=== PATIENT | female | born 1945 | race Caucasian/White ===

== ENCOUNTER → 2020-04-27 15:39 | Outpatient (CLI) | payer MEDICARE, OTHER, SELFPAY ==
[2018-04-29 10:08] VITALS: BMI 21.1
--- NOTE | 2020-04-27 15:44 | RAD_ITS ---
STUDY: X-RAY - LEFT KNEE REASON FOR EXAM: Female, 75 years old. PAIN X 1 YEAR, NO INJURY TECHNIQUE: 4 view(s) of the knee. COMPARISON: None. FINDINGS: Normal visualized distal femur. Normal visualized proximal tibia and fibula. Normal proximal tibiofibular articulation. There is no demonstrated fracture. Normal medial femorotibial compartment. Normal lateral femorotibial compartment. 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 There is no demonstrated joint effusion. The soft tissue structures are unremarkable. RAD/Knee 4 or More Views IMPRESSION: No definite acute or significant abnormality seen. Electronically Signed: Bienvenido Brown MD at 21:17 EST , Service support ,
--- NOTE | 2020-04-27 15:44 | RAD_ITS ---
STUDY: X-RAY - RIGHT KNEE REASON FOR EXAM: Female, 75 years old. PAIN X 1 YEAR, NO INJURY TECHNIQUE: 4 view(s) of the knee. COMPARISON: None. FINDINGS: Normal visualized distal femur. Normal visualized proximal tibia and fibula. Normal proximal tibiofibular articulation. There is no demonstrated fracture. Normal medial femorotibial compartment. Normal lateral femorotibial compartment. 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 There is no demonstrated joint effusion. The soft tissue structures are unremarkable. RAD/Knee 4 or More Views IMPRESSION: Mild degenerative changes. Small effusion. Electronically Signed: Bienvenido Brown MD at 21:18 EST , Service support ,
== END ==
PROVIDERS: PCP Internal Medicine; Referring Provider Internal Medicine; Visit Provider Internal Medicine
DX: M25.561 Pain in right knee (principal); M25.562 Pain in left knee
CPT/HCPCS: 73564

== ENCOUNTER → 2020-07-22 06:24 | Outpatient (CLI) | payer MEDICARE, OTHER, SELFPAY ==
[2018-04-29 10:08] VITALS: BMI 21.1
--- NOTE | 2020-07-22 08:44 | TELEMED_ITS ---
[facility] has confirmed receipt of a request for visit. This document confirms receipt of the order initiating the consult. To find the results of the consultation, please view the patient's reports for the scanned Telemed Consult.
== END ==
PROVIDERS: PCP Internal Medicine; Referring Provider Internal Medicine; Visit Provider Internal Medicine
DX: R40.4 Transient alteration of awareness (principal)
CPT/HCPCS: 95819

== ENCOUNTER 2020-08-31 12:30 | Outpatient (RCR) | payer MEDICARE, OTHER, SELFPAY ==
[2018-04-29 10:08] VITALS: BMI 21.1
--- NOTE | 2020-07-08 10:46 | HP.PTEVAL ---
Patient's Visit Information Kasey LARA is a 75 year old F referred to Physical Therapy by Dr. Marlyn Franco DO with a diagnosis of B knee pain. Date of Evaluation: 07/07/20 Physical Therapist: Jacky Butler DPT - Visit Plan Frequency: 1x/Week Duration: 4-6 Weeks Plan: Start with B quad, hamstring, glute max and med strengthening. Pt. desires to do a home exercise program and follow back up in a few weeks to change as nessesary. - Subjective Pt. is here today for her initial evaluation with diagnosis of B knee pain. Pt. reports having knee pain that started ~8 months ago. I feel like I just became weak in my legs and now my knees are hurting. No mech of injury noted. She reports pain at B patellar regions. No N/T. Pain that increases as the day progresses. Increases pain: walking, squating, stairs (especially decsnding), and standing for longer periods. Pt. did ahve xrays showing mild arthritic changes. Pt. has not been as active over the past year or so due to COVID restrictions. 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 She is hopeful to increase her strength and reduce her pain allowing for increased tolerance with all recreational and work activities. - Pain R knee Pain Intensity (Out of 10): 0 Pain Intensity Range: 0, 2 L knee Pain Intensity (Out of 10): 0 Pain Intensity Range: 0, 2 - Objective POSTURE: Pt. tends to stand with alternating hyper extension in her knees. Pt. is able to maintain proper posture with TCing. Normal NEVAEH and normal iliac crest hieghts. PALPATION: Pt. has mild tenderness at medial tibial femoral joints B and slight tendernessa t B patellar tendons. NEURO: Normal sensation and normal dTR of BLEs including achilles and patellar tendons. Pt. is able to rise on heels and toes without issues. ROM: R knee : 0-0-132deg, L knee 0-0-130deg. Pt. has no pain with over pressures. Pt. has slight tightness of B hamstrings, but otherwise normal. MMT: RLE: ankle 5/5 throughout; knee ext 4/5, flexion 4+/5; hip- flexion 4/5, adb 4/5, ext 4+/5. LLE: ankle 5/5 throughout; knee: ext 4+/5, flexion 4+/5; hip- flexion 4/5, abd 4/5, ext 4/5. Core strength: fair-. GAIT: pt. has normal gait pattern with slight hyper knee ext during end of swing phase. Normal tibial positioning. Slight B valgus positioning. STAIRS: Pt. is able to negotiate with 2 HR with light use of UEs with reciprocal pattern, increased pain B with descending. - Special Tests R Knee Durga - Meniscus: Negative R Knee Apley - Meniscus: Negative R Knee Anterior Drawer - ACL: Negative R Knee Posterior Drawer - PCL: Negative R Knee Valgus - MCL: Negative R Knee Varus - LCL: Negative L Knee Durga - Meniscus: Negative L Knee Apley - Meniscus: Negative L Knee Anterior Drawer - ACL: Negative L Knee Posterior Drawer - PCL: Negative L Knee Valgus - MCL: Negative L Knee Varus - LCL: Negative - Goals Goal 1:: LTG: pt. to be I with HEP. Goal Time Frame: 4-6 Weeks Goal 2:: STG: Pt. to ambulate household distances without increase in symptoms. Goal Time Frame: 2-4 Weeks Goal 3:: LTG: Pt. to ambulate unlimited distances without increase in symptoms. Goal Time Frame: 4-6 Weeks Goal 4:: LTG: Pt. to have increased BLE strength by 1 grade throughout effected musculature. Goal Time Frame: 4-6 Weeks Goal 5:: LTG: Pt. to negotiate steps with 1 HR wtihout increase in B knee pain. Goal Time Frame: 4-6 Weeks - Rehabilitation Potential Physical Therapy Diagnosis: Pt. has signs and symptoms consistent with B knee pain. Pt. has slight arthritic changes in B knees, but does not seem to be to cuase of her symptoms. She has good ROM without increase in symptoms. I did not see any soft tissue damage or meniscal pathology today. I would suggest increasing her strenth of B knee and hip musculature to reudce stress applied to B knees in standing and loaded positions. She does tend to stand with alternating TKE resting on her tibial femoral joint. I talked to her about avoiding this position to reduce stress applied to meniscus. Pt. consents. Pt. would benefit from PT to increase BLE strength allowing for increased tolerance to all functional mobility. Rehabilitation Potential: Excellent - Anticipated Interventions Patient/Client Instruction: Educate patient on: Condition, Plan of Care, Risk Factors, Benefits of Fitness Program For the Purpose of:: To facilitate caregiver knowledge, To improve self management, To prevent re-injury, To improve ability to perform tasks related to life management, To improve tolerance to ADL's Therapeutic Exercise to Include: Strength training, Power training, Postural training, Passive ROM, Active ROM For the Purpose of:: To decrease pain, To increase ROM, To improve nutrient delivery to tissue, To increase oxygenation perfusion, To improve muscle performance and motor function, To improve health of tissue Thank you for the opportunity to evaluate your patient. For Medicare and Medicare HMO plans, please review the plan of care and approve it. It will need to be FAXED BACK to us at [phone] for Medicare purposes. For Medicare only, by signing this I certify the plan of care. Please let me know if there are questions or concerns regarding this plan of care. Physician Signature: Date:
--- NOTE | 2020-09-06 09:57 | HP.PTREVAL_ITS ---
Dr. Marlyn Franco, DO, It has been my pleasure to treat Kasey LARA over the last 2 visits for B knee pain. Please see the progress note below for an update on the physical therapy plan of care! Subjective: Pt. reports overall improving, but is still having periods here she feels like her knees lock up. She has recently joined a gym and is working out there to increase BLE strength. No pain currently. Pt. is working out x3 days per week. 30% better overall. Objective/Function: Pt. continues to have pretty good ROM of BLEs. Pt. has g reatest issues with rising from sustained bend over positions. pt. reports this is occurring when she is bent over gardening, etc. She has been working on some machines a gym, but has been a little apprehensive with progressing due to fear of injury. MMT: 4/5 B quad, HS, glute max and glute med. Pt. has no pain with testing today. Pt. has good wallking, but her stair negotiation is a bit antalgic. She uses 1 HR with hand over hand pattern due to fear of her knee giving out on her. I showed her some new machines to add to her routine. I would still like her to work on B hip/LE strengthening. Pt. consents. Plan Plan: Pt. to add in above exercises to her gym routine. I also recommended using the trainers at her gym to assist with hip and LE strengthening pending exercise machines available. pt. consents. pt. to resume her independent program and follow up with PT in 4-6 weeks if needed. Goals Goal 1:: LTG: pt. to be I with HEP. Goal Time Frame: 4-6 Weeks Goal Progress: Progressing Goal 2:: STG: Pt. to ambulate household distances without increase in symptoms. Goal Time Frame: 2-4 Weeks Goal Progress: Progressing Goal 3:: LTG: Pt. to ambulate unlimited distances without increase in symptoms. Goal Time Frame: 4-6 Weeks Goal Progress: Progressing Goal 4:: LTG: Pt. to have increased BLE strength by 1 grade throughout effected musculature. Goal Time Frame: 4-6 Weeks Goal Progress: Progressing Goal 5:: LTG: Pt. to negotiate steps with 1 HR wtihout increase in B knee pain. Goal Time Frame: 4-6 Weeks Goal Progress: Progressing Anticipated Interventions Patient/Client Instruction: Educate patient on: Condition, Plan of Care, Risk Factors, Benefits of Fitness Program For the Purpose of:: To facilitate caregiver knowledge, To improve self management, To prevent re-injury, To improve ability to perform tasks related to life management, To improve tolerance to ADL's Therapeutic Exercise to Include: Strength training, Power training, Postural training, Passive ROM, Active ROM For the Purpose of:: To decrease pain, To increase ROM, To improve nutrient delivery to tissue, To increase oxygenation perfusion, To improve muscle performance and motor function, To improve health of tissue Please do not hesitate to contact me at [phone] by phone or if you have questions or concerns regarding this new plan of care! Sincerely, BEENA NguyenT
== END 2020-08-31 19:00 | disposition home or self-care (01) ==
LOC: PT 12:30
PROVIDERS: PCP Internal Medicine; Referring Provider Internal Medicine; Visit Provider Internal Medicine
DX: M25.561 Pain in right knee (principal); M25.562 Pain in left knee
CPT/HCPCS: 97110; 97161

== ENCOUNTER → 2020-10-06 11:18 | Outpatient (CLI) | payer MEDICARE, OTHER, SELFPAY ==
[2020-08-10 14:44] VITALS: BMI 21.1
--- NOTE | 2020-10-06 11:20 | US_ITS ---
STUDY: ULTRASOUND OF THE FEMALE PELVIS - COMPLETE REASON FOR EXAM: Female, 75 years old. POSTMENOPAUSAL BLEEDING LMP: The patient is postmenopausal. TECHNIQUE: Transabdominal and Transvaginal TECHNICAL QUALITY: Adequate. COMPARISON: None. FINDINGS: The uterus is retroflexed and is in a midline position. The uterus measures 6 cm x 4.7 cm x 2.4 cm. There is a Nabothian cyst of the cervix. The endometrium is slightly thickened and measures 2.8 mm in thickness, and is heterogeneous (striated). There is no demonstrated endometrial mass. 773 fibroids within the body of uterus. The larger measures 2 cm x 1.7 cm x 1.8 cm. I.U.D. - The patient does not have an I.U.D. The right ovary is non-visualized. The left ovary is non-visualized. There is no fluid in the cul-de-sac. The pre void volume of the bladder was 571.6 ml. US/Pelvic (Non ) IMPRESSION: Mildly thickened endometrium. There are 3 small uterine fibroids. Electronically Signed: Kirk Hernadez MD at 13:35 EDT , Service support ,
--- NOTE | 2020-10-06 11:20 | US_ITS ---
STUDY: ULTRASOUND OF THE FEMALE PELVIS - COMPLETE REASON FOR EXAM: Female, 75 years old. POSTMENOPAUSAL BLEEDING LMP: The patient is postmenopausal. TECHNIQUE: Transabdominal and Transvaginal TECHNICAL QUALITY: Adequate. COMPARISON: None. FINDINGS: The uterus is retroflexed and is in a midline position. The uterus measures 6 cm x 4.7 cm x 2.4 cm. There is a Nabothian cyst of the cervix. The endometrium is slightly thickened and measures 2.8 mm in thickness, and is heterogeneous (striated). There is no demonstrated endometrial mass. 773 fibroids within the body of uterus. The larger measures 2 cm x 1.7 cm x 1.8 cm. I.U.D. - The patient does not have an I.U.D. The right ovary is non-visualized. The left ovary is non-visualized. There is no fluid in the cul-de-sac. The pre void volume of the bladder was 571.6 ml. US/Transvaginal Non- IMPRESSION: Mildly thickened endometrium. There are 3 small uterine fibroids. Electronically Signed: Kirk Hernadez MD at 13:35 EDT , Service support ,
== END ==
PROVIDERS: PCP Internal Medicine; Referring Provider Internal Medicine; Visit Provider Internal Medicine
DX: N95.0 Postmenopausal bleeding (principal); D25.9 Leiomyoma of uterus, unspecified; N88.8 Other specified noninflammatory disorders of cervix uteri; R93.89 Abnormal findings on diagnostic imaging of other specified body structures; Z78.0 Asymptomatic menopausal state
CPT/HCPCS: 76830; 76856

== ENCOUNTER → 2021-01-23 20:04 | Outpatient (CLI) | payer MEDICARE, OTHER, SELFPAY ==
[2020-10-18 09:59] VITALS: BMI 23.0
== END ==
PROVIDERS: PCP Internal Medicine; Referring Provider Psychiatry & Neurology Neurology; Visit Provider Psychiatry & Neurology Neurology
DX: G47.419 Narcolepsy without cataplexy (principal); G47.00 Insomnia, unspecified; G47.33 Obstructive sleep apnea (adult) (pediatric)
CPT/HCPCS: 95810

== ENCOUNTER 2021-06-07 08:46 | Outpatient (CLI) | payer MEDICARE, OTHER, SELFPAY ==
[2021-06-07 10:24] LABS: Hematocrit 44.3 % (37-47); Hemoglobin 14.6 g/dL (12.0-15.0); Mean Corpuscular Volume 97.1 fL (81-99); Mean Platelet Vol. 10.8 fl (6.2-12.0); Platelet Count 240 K/mm3 (150-450); RBC Distribution Width CV 13.2 % (11.6-14.6); RBC Distribution Width SD 47.2 fl (35.1-43.9); Red Blood Count 4.56 M/mm3 (4.2-5.4); White Blood Count 4.9 K/mm3 (4.4-11.0)
[2021-06-07 11:11] LABS: Vitamin B12 434 pg/mL (211-911)
[2021-06-07 11:52] LABS: ALB/GLOB Ratio 1.1 RATIO (0.9-2.4); AST(SGOT) 15 U/L (15-37); Alanine Aminotransfer ALT/SGPT 22 U/L (13-56); Albumin, Serum 3.6 g/dL (3.2-5.0); Alkaline Phosphatase 90 U/L (45-117); Anion Gap 5 (5-15); BUN 16 mg/dL (7-18); BUN/Creat Ratio 19.1 RATIO (10-20); Calcium,Total 9.1 mg/dL (8.5-10.1); Chloride 106 mmol/L (98-107); Creatinine, Serum 0.84 mg/dL (0.55-1.02); EST Glomerular Filtration Rate 70 mL/min (>60); Est Glom Filt Rate - Afr Amer 85 mL/min (>60); Globulin 3.2 g/dL (2.2-4.2); Glucose 97 mg/dL (74-106); Potassium 4.1 mmol/L (3.5-5.1); Protein, Total 6.8 g/dL (6.4-8.2); Sodium Level 139 mmol/L (136-145); Thyroid Stim Hormone (TSH) 1.14 uIU/mL (0.358-3.74)
[2021-06-19 15:16] LABS: Vitamin B1, Thiamine 145.8 nmol/L (66.5-200.0)
== END 2021-06-07 23:59 | disposition home or self-care (01) ==
PROVIDERS: PCP Internal Medicine; Referring Provider Psychiatry & Neurology Neurology; Visit Provider Psychiatry & Neurology Neurology
DX: G47.33 Obstructive sleep apnea (adult) (pediatric) (principal); R41.82 Altered mental status, unspecified; F41.9 Anxiety disorder, unspecified
CPT/HCPCS: 36415; 80053; 82607; 82746; 84425; 84443; 85027

== ENCOUNTER → 2021-12-20 | Outpatient (CLI) | payer MEDICARE, OTHER, SELFPAY ==
--- NOTE | 2021-12-20 09:25 | BD_ITS ---
STUDY: DUAL ENERGY X-RAY ABSORPTIOMETRY / DXA REASON FOR EXAM: Female, 76 years old. M810. Patient is postmenopausal. TECHNIQUE: Bone Mineral Density (BMD) measurements of lumbar spine and left hip were obtained. COMPARISON: None. FINDINGS: Lumbar Spine (L1-L4): g/cm2 (0.776) / T-score (-2.5) / Z-score (0.1) Findings are suggestive of osteopenia with a high fracture risk. Left Femur Total: g/cm2 (0.651) / T-score (-2.4) / Z-score (-0.5) Left Femoral Neck: g/cm2 (0.533) / T-score (-2.8) / Z-score (-0.6) BD/Dexa Bone Density Study IMPRESSION: The patient is considered osteoporotic as outlined below according to World Chemo Organization (WHO) criteria with a high fracture risk. Reference Information: The T-score is the number of standard deviations above or below the standard which is normal for young adults at their peak bone mineral density. The World Health Organization (WHO) interprets the T-scores as follows: Above -1 Normal bone density Between -1 and -2.5 Osteopenia Equal to / or below -2.5 Osteoporosis As a practical clinical guideline, osteopenia may be graded as follows: Mild -1 through -1.5 Moderate -1.6 through -2.0 Severe -2.1 through -2.4 The Z-score is the number of standard deviations above or below age-matched controls. A Z-score of less than -1.5 would be considered abnormal. References: 1. NIH Osteoporosis and Related Bone Diseases www osteo.org 2. International Society for Clinical Densitometry www iscd.org 3. National Osteoporosis Foundation www nof.org Electronically Signed: Kirk Hernadez MD at 15:28 EDT ,
== END | disposition home or self-care (01) ==
LOC: OPBD 09:16
PROVIDERS: PCP Internal Medicine; Visit Provider Internal Medicine
DX: M81.0 Age-related osteoporosis without current pathological fracture (principal); Z78.0 Asymptomatic menopausal state
CPT/HCPCS: 77080

== ENCOUNTER 2023-12-17 12:14 | Outpatient (CLI) | payer MEDICARE, OTHER, SELFPAY ==
[2023-12-17 12:22] VITALS: BP 121/76; PULSE 67; RESP 16; TEMP 36.4; O2SAT 97; BMI 23.5
[2023-12-17] MEDS: DENOSUMAB 60 MG/ML SC (12:27)
== END 2023-12-17 23:59 | disposition home or self-care (01) ==
PROVIDERS: PCP Internal Medicine; Referring Provider Internal Medicine; Visit Provider Internal Medicine
DX: M81.0 Age-related osteoporosis without current pathological fracture (principal)
CPT/HCPCS: 96372; J0897

== ENCOUNTER → 2024-03-13 | Outpatient (CLI) | payer MEDICARE, OTHER, SELFPAY ==
--- NOTE | 2024-03-13 09:51 | BD_ITS ---
STUDY: DUAL ENERGY X-RAY ABSORPTIOMETRY / DXA REASON FOR EXAM: Female, 78 years old. 627.8Menopausal postmenopausalBONE DENSITY REASON FOR EXAM -- Postmenopausal status TECHNIQUE: Bone Mineral Density (BMD) measurements of lumbar spine and left hip were obtained. COMPARISON: 12/20/2021 FINDINGS: Lumbar Spine (L1-L4): g/cm2 (0.729) / T-score (-2.3) / Z-score (0.2) Findings are suggestive of osteopenia with a moderate fracture risk. Left Femur Total: g/cm2 (0.654) / T-score (-2.4) / Z-score (-0.3) Left Femoral Neck: g/cm2 (0.562) / T-score (-2.6) / Z-score (-0.3) BD/Dexa Bone Density Study IMPRESSION: The patient is considered osteoporotic as outlined below according to World Chemo Organization (WHO) criteria with a high fracture risk. There has been no change of bone density since the previous examination. Reference Information: The T-score is the number of standard deviations above or below the standard which is normal for young adults at their peak bone mineral density. The World Health Organization (WHO) interprets the T-scores as follows: Above -1 Normal bone density Between -1 and -2.5 Osteopenia Equal to / or below -2.5 Osteoporosis As a practical clinical guideline, osteopenia may be graded as follows: Mild -1 through -1.5 Moderate -1.6 through -2.0 Severe -2.1 through -2.4 The Z-score is the number of standard deviations above or below age-matched controls. A Z-score of less than -1.5 would be considered abnormal. References: 1. NIH Osteoporosis and Related Bone Diseases www osteo.org 2. International Society for Clinical Densitometry www iscd.org 3. National Osteoporosis Foundation www nof.org Electronically Signed: Abdulkadir Saleh MD at 8:41 EST ,
== END | disposition home or self-care (01) ==
PROVIDERS: PCP Internal Medicine; Referring Provider Internal Medicine; Visit Provider Internal Medicine
DX: Z78.0 Asymptomatic menopausal state (principal)
CPT/HCPCS: 77080

== ENCOUNTER 2024-06-19 12:18 | Outpatient (CLI) | payer MEDICARE, OTHER, SELFPAY ==
[2024-06-19 12:24] VITALS: BP 142/85; PULSE 67; RESP 16; TEMP 36.6; O2SAT 95
[2024-06-19] MEDS: DENOSUMAB 60 MG/ML SC (12:31)
== END 2024-06-19 23:59 | disposition home or self-care (01) ==
LOC: MEDOUTP 12:21
PROVIDERS: PCP Internal Medicine; Referring Provider Internal Medicine; Visit Provider Internal Medicine
DX: M81.0 Age-related osteoporosis without current pathological fracture (principal)
CPT/HCPCS: 96372; J0897

== ENCOUNTER → 2024-06-30 | Outpatient (CLI) | payer MEDICARE, OTHER, SELFPAY ==
--- NOTE | 2024-06-30 08:42 | US_ITS ---
PROCEDURE: PELVIC W/ TRANSVAGINAL 06/30/2024 REASON FOR EXAM: PELVIC US COMPLETE - POSTMENOPAUSAL BLEEDING TECHNIQUE: Transabdominal pelvic ultrasound COMPARISON: None. FINDINGS: The uterus is heterogeneous in the appearance and retroverted. The uterus measures up to 6.4 x 4.4 x 3.1 cm. The uterus contains fibroids. For example a 2.1 x 1.9 x 1.6 cm submucosal fibroid is identified. This is primarily located within the posterior wall at exerts mass effect on the endometrial canal. A submucosal fibroid is present measuring up to 1.8 x 1.5 x 1.1 cm also within the posterior uterine wall. Endometrial thickness measures up to 2 mm. There is fluid noted within the endometrial canal. The ovaries are not visualized. US/Pelvic w/ Transvaginal IMPRESSION: Heterogeneous fibroid uterus. Fluid within the endometrial canal. These findi ngs are unusual in a postmenopausal female. Recommend further gynecologic workup. Consider MRI pelvis with and without con trast. Reading Location: [id number]
== END | disposition home or self-care (01) ==
PROVIDERS: PCP Internal Medicine; Referring Provider Internal Medicine; Visit Provider Internal Medicine
DX: N95.0 Postmenopausal bleeding (principal)
CPT/HCPCS: 76830; 76856

== ENCOUNTER → 2024-10-19 | Outpatient (CLI) | payer MEDICARE, OTHER, SELFPAY ==
--- NOTE | 2024-10-19 10:05 | CT_ITS ---
PROCEDURE: CTA CHEST W/WO CONTRAST 10/19/2024 REASON FOR EXAM: CTA OF CHEST WITHOUT THEN WITH CONTAST AND POST-PROCESSING Ectatic thoracic aorta. TECHNIQUE: CTA CHEST W/WO CONTRAST Multiplanar Sagittal and Coronal images were obtained. 3D post processing was performed CONTRAST: Isovue 370 VOLUME: 100 mL One or more dose reduction techniques were used (e.g., Automated exposure control, adjustment of the mA and/or kV according to patient size, use of iterative reconstruction technique). RADIATION DOSE SUMMARY: CTDlvol: 6.3 mGy DLP: 185.26 mGycm COMPARISON: None FINDINGS: Hardware: None Lymph nodes: Small benign-appearing bilateral axillary lymph nodes. Heart: Mild cardiomegaly. No significant coronary artery calcification is seen. Minimal calcification of the aortic arch. The ascending thoracic aorta measures within normal limits. Thoracic Aorta: No thoracic aortic aneurysm or dissection. Pulmonary Vessels: No evidence of pulmonary embolism. Lungs and Airways: Minimal degree of increased markings at the lung bases suggestive of mild basilar scarring. Pleura: No pleural effusion Upper Abdomen: Unremarkable Bones: Degenerative changes of the thoracic spine. CT/CTA Chest W/WO Contrast IMPRESSION: No acute abnormality is seen. Minimal bibasilar scarring. Reading Location: [id number]
== END | disposition home or self-care (01) ==
LOC: CT 10:04
PROVIDERS: PCP Internal Medicine; Referring Provider Internal Medicine; Visit Provider Internal Medicine
DX: I77.810 Thoracic aortic ectasia (principal)
CPT/HCPCS: 71275; Q9967

== ENCOUNTER 2024-12-17 13:20 | Outpatient (CLI) | payer MEDICARE, SELFPAY ==
[2024-12-17 13:45] VITALS: BP 152/90; PULSE 68; RESP 16; TEMP 36.6; O2SAT 95
[2024-12-17] MEDS: DENOSUMAB 60 MG/ML SC (13:52)
== END 2024-12-17 23:59 | disposition home or self-care (01) ==
LOC: MEDOUTP 13:21
PROVIDERS: PCP Internal Medicine; Referring Provider Internal Medicine; Visit Provider Internal Medicine
DX: M81.0 Age-related osteoporosis without current pathological fracture (principal)
CPT/HCPCS: 96372; J0897

== ENCOUNTER → 2025-01-01 | Outpatient (CLI) | payer MEDICARE, SELFPAY ==
[2025-01-01 12:59] LABS: Mucous, Urine 0 SEEN /hpf (<or=2+); Red Blood Cells-Urine 0 SEEN /hpf (0-5)
[2025-01-01 13:18] LABS: Color, Urine Yellow (Yellow); Glucose, Dipstick Normal (Normal); Ketone-Dipstick Negative (Negative); Leukocyte Esterase-Dipstick Negative /ul (Negative); Nitrite-Dipstick Negative (Negative); Occult Blood-Urine Negative /ul (Negative); Protein-Dipstick Negative (Negative); Specific Gravity, Urine 1.010 (1.002-1.030); Urine Bilirubin Dipstick Negative (Negative)
[2025-01-01 13:19] LABS: Hematocrit 44.0 % (37-47); Hemoglobin 14.2 g/dL (12.0-15.0); Immature Granulocytes Count 0.020 X10^3/uL (0.0-0.0); Mean Corp Hgb Conc 32.3 g/dL (32-36); Mean Corpuscular Volume 100.2 fL (81-99); Mean Platelet Vol. 11.0 fl (6.2-12.0); NRBC Flagged by Analyzer 0 % (0-5); Platelet Count 249 K/mm3 (150-450); RBC Distribution Width CV 13.2 % (11.6-14.6); RBC Distribution Width SD 49.1 fl (35.1-43.9); Red Blood Count 4.39 M/mm3 (4.2-5.4); White Blood Count 5.0 K/mm3 (4.4-11.0)
[2025-01-01 13:23] LABS: Squamous Epithelial Cells - UA 0-5 SEEN /hpf (5-10)
[2025-01-01 14:01] LABS: AST(SGOT) 25 U/L (<=31); Alanine Aminotransfer ALT/SGPT 22 U/L (<=34); Albumin, Serum 4.6 g/dL (3.4-4.8); Alkaline Phosphatase 86 U/L (35-104); Anion Gap 9 (5-15); BUN 15 mg/dL (4-19); BUN/Creat Ratio 21.2 RATIO (10-20); Calcium,Total 9.7 mg/dL (7.6-11.0); Carbon Dioxide 27.7 mmol/L (21.0-32.0); Chloride 104 mmol/L (98-108); Cholesterol 216 mg/dL (<=200); Globulin 2.4 g/dL (2.2-4.2); Glucose 91 mg/dL (70-99); Low Density Lipoprotein Calc. 101 mg/dL; Potassium 4.7 mmol/L (3.3-5.1); Triglycerides 34 mg/dL; Very Low Density Lipoprotein 7 mg/dL (5-40); Vitamin D,25 Hydroxy 41.1 ng/mL (30-100); cholesterol:hdl ratio screen 1.98
== END | disposition home or self-care (01) ==
LOC: LABSPEC 12:37
PROVIDERS: PCP Internal Medicine; Referring Provider Internal Medicine; Visit Provider Internal Medicine
DX: E55.9 Vitamin D deficiency, unspecified (principal); R73.03 Prediabetes; R71.8 Other abnormality of red blood cells; Z79.899 Other long term (current) drug therapy
CPT/HCPCS: 80053; 80061; 81001; 82306; 83036; 85025